=== PATIENT | male | born 1970 | race Caucasian/White ===

== ENCOUNTER 2018-11-06 10:56 | Outpatient (RCR) | payer OTHER | END 2018-12-22 13:26 | disposition home or self-care (01) | LOC: WSOH 10:56 | DX: R22.0 Localized swelling, mass and lump, head (principal); X58.XXXA Exposure to other specified factors, initial encounter; Y92.61 Building [any] under construction as the place of occurrence of the external cause; Y93.H3 Activity, building and construction; Y99.0 Civilian activity done for income or pay; F17.210 Nicotine dependence, cigarettes, uncomplicated ==